=== PATIENT | male | born 1935 | race Caucasian/White ===

== ENCOUNTER → 2016-12-06 | Outpatient (CLI) | payer MEDICARE | LOC: LAB 11:42 | PROVIDERS: ATTEND Nurse Practitioner Acute Care | DX: R06.00 Dyspnea, unspecified (principal) | CPT/HCPCS: 36415; 83880 ==

== ENCOUNTER → 2020-05-23 | Outpatient (CLI) | payer MEDICARE ==
--- NOTE | 2020-05-23 08:45 | RADIOLOGY REPORT (SQ) ---
EXAM DESCRIPTION: MRI LT UPPER JOINT WITHOUT IMAGES COMPLETED DATE/TIME: 05/23/2020 7:51 am REASON FOR STUDY: OTHER SPECIFIC JOINT DERANGEMENTS OF LEFT SHOULDER, NEC (M24.812) M24.812 OT SPE CIFIC JOINT DERANGEMENTS OF LEFT SHOULDER, NE COMPARISON: None. TECHNIQUE: Left shoulder images acquired and stored on PACS. Multiplanar imaging to include fat sens itive sequences such as T1, water sensitive sequences such as FST2/STIR, cartilage sensitive sequence s such as FSPD/gradient-echo sequences. LIMITATIONS: None. FINDINGS: BONE MARROW AND CORTEX: No worrisome bone lesions or marrow replacement. No occult fractur es. JOINT OR BURSAL EFFUSION: Trace fluid. GLENO-HUMERAL ARTICULATION: Normal articulation. No subluxation. No cystic change. No osteophytes or cartilage loss. ACROMION AND AC JOINT: No down-sloping or distal spur. Sub-acromial space maintained. No significa nt AC joint arthropathy. ROTATOR CUFF AND INTERVAL: Irregular tear in the distal cuff, supraspinatus insertion. This looks hi gh-grade partial with breech of bursal surface fibers and involvement of most of the substance of the cuff. Reactive bone cysts in the greater tuberosity. Tendinosis in the infraspinatus. Tendinosis in the subscapularis. Mild loss of muscle bulk suggesting atrophy in the supraspinatus with minimal fatty change in the infraspinatus. LABRUM AND BICEPS LABRAL COMPLEX: Intact. No labral tear. Intra-articular long-head biceps tendon n ormal. Distal biceps in normal location in bicipital groove. REMAINDER OF LABRUM AND IGHL : Limited assessment. Blunting throughout the posterior labrum, possibl y degenerative. Thickening and irregularity throughout the anterior to anterior inferior labrum. Te ar here is not excluded. No large paralabral cysts, however. PERIARTICULAR AND ADJACENT SOFT TISSUES: No masses or abnormal nodes. OTHER: No other significant finding. IMPRESSION: 1. High-grade partial supraspinatus insertion tear with tendinosis otherwise. 2. Other findings as outlined above. TECHNICAL DOCUMENTATION: JOB ID: [id number] 2010 [employer]- All Rights Reserved Reading location - IP/workstation name: [email or web address]
== END ==
LOC: RAD 06:23
PROVIDERS: ATTEND Physician Assistant
DX: M24.812 Other specific joint derangements of left shoulder, not elsewhere classified (principal); M75.112 Incomplete rotator cuff tear or rupture of left shoulder, not specified as traumatic